=== PATIENT | male | born 1970 | race Caucasian/White ===

== ENCOUNTER 2022-05-01 16:39 | Inpatient (IN) | payer OTHER ==
[~2022-05-01] VITALS: Ht 175.3 cm; Wt 119.0 kg
[2022-05-01 18:54] LABS: BASOPHILS ABSOLUTE AUTO 0.08 K/mm3 (0.00-0.23); BASOPHILS PERCENT AUTO 1 % (0-2); EOSINOPHILS PERCENT AUTO 0 % (0-6); Hematocrit 50.6 % (37.0-53.0); Hemoglobin 17.6 g/dL (13.5-17.5); IMMATURE GRAN ABSOLUTE AUTO 0.11 K/mm3 (0.00-0.10); IMMATURE GRAN PERCENT AUTO 1 % (0-1); LYMPHOCYTES ABSOLUTE AUTO 1.64 K/mm3 (0.84-5.20); LYMPHOCYTES PERCENT AUTO 9 % (21-46); MONOCYTES ABSOLUTE AUTO 2.28 K/mm3 (0.16-1.47); MONOCYTES PERCENT AUTO 13 % (4-13); Mean Corpuscular HGB 31.4 pg (26.0-34.0); Mean Corpuscular HGB Conc 34.8 g/dL (31.5-36.5); Mean Corpuscular Volume 90 fL (80-100); Mean Platelet Volume 9.5 fL (9.1-12.4); NEUTROPHILS ABSOLUTE AUTO 13.31 K/mm3 (1.96-9.15); NEUTROPHILS PERCENT AUTO 76 % (41-73); Platelet Count 225 K/mm3 (150-400); RDW Coefficient Variation 13.6 % (11.7-14.2); RDW Standard Deviation 45.4 fL (35.1-46.3); White Blood Cell Count 17.42 K/mm3 (4.00-11.30)
[2022-05-01 19:13] LABS: Albumin, Blood 3.6 g/dL (3.4-5.0); Albumin/Globulin Ratio 0.8 (0.8-1.8); Bun/Creatinine Ratio 14.2 (12.0-20.0); Creatinine, Blood 0.92 mg/dL (0.60-1.20); Globulin, Blood 4.5 g/dL (2.2-4.0); Potassium, Blood 4.1 mmol/L (3.5-5.5); Total Protein, Blood 8.1 g/dL (6.4-8.2)
[2022-05-01 19:30] LABS: Source, Urine Clean Catch
[2022-05-01 19:34] LABS: Appearance, Urine Clear (Clear); Bilirubin, Urine Neg (Neg); Blood, Urine 3+ (Neg); Color, Urine Yellow (P-Yellow); Glucose Qualitative, Urine Neg (Neg); Ketones, Urine 1+ (Neg); Leukocyte Esterase, Urine 1+ (Neg); Nitrite, Urine Neg (Neg); Protein, Urine 3+ (Neg); Urobilinogen, Urine NORM (Normal)
[2022-05-01 19:42] LABS: Bacteria Few /hpf; Hyaline Casts 0-2 /lpf (0-2); Mucus Light (0-Heavy); Red Blood Cells, Urine 0-2 /hpf (0-2); Squamous Epithelial Cells Rare /hpf (Few); White Blood Cells, Urine 0-2 /hpf (0-5)
--- NOTE | 2022-05-01 22:12 | NUR ---
NEW ADMIT PT ARRIVED T/ROOM AT 2208. PT XFER T/BED INDEPENDENTLY; PT INDEPENDENT IN ROOM. PT ORIENTED TO ROOM/CALL LIGHT. PT A/OX4. ABLE TO MAKE NEEDS KNOWN. CALL LIGHT IN REACH.
--- NOTE | 2022-05-02 05:00 | NUR ---
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 INDEPENDENT IN THE ROOM. PT ADMIT W/DIVERTICULITIS AND POSSIBLE PERFORATION. PT ABDOMEN DISTENDED AND PAINFUL IN LOWER LEFT QUAD. PT STATES HIS PAIN IS MILD AND DENIES NEED FOR MEDS. DR STACK AT BEDSIDE--REG DIET IF TOLERATES; NPO IF NOT. PT HAS REQUESTED WATER ONLY AND TOLERATING WELL. PT PLEASANT AND COOPERATIVE WITH CARE. ORIENTED TO ROOM. CALL LIGHT IN REACH. NS RUNNING AT 75 MLS/HR.
[2022-05-02 05:59] LABS: BASOPHILS ABSOLUTE AUTO 0.08 K/mm3 (0.00-0.23); BASOPHILS PERCENT AUTO 1 % (0-2); EOSINOPHILS ABSOLUTE AUTO 0.02 K/mm3 (0.00-0.68); EOSINOPHILS PERCENT AUTO 0 % (0-6); Hematocrit 47.5 % (37.0-53.0); IMMATURE GRAN ABSOLUTE AUTO 0.06 K/mm3 (0.00-0.10); IMMATURE GRAN PERCENT AUTO 1 % (0-1); LYMPHOCYTES ABSOLUTE AUTO 1.52 K/mm3 (0.84-5.20); LYMPHOCYTES PERCENT AUTO 12 % (21-46); MONOCYTES ABSOLUTE AUTO 1.58 K/mm3 (0.16-1.47); MONOCYTES PERCENT AUTO 13 % (4-13); Mean Corpuscular HGB 31.1 pg (26.0-34.0); Mean Corpuscular HGB Conc 33.7 g/dL (31.5-36.5); Mean Corpuscular Volume 92 fL (80-100); Mean Platelet Volume 9.5 fL (9.1-12.4); NEUTROPHILS ABSOLUTE AUTO 9.42 K/mm3 (1.96-9.15); NEUTROPHILS PERCENT AUTO 74 % (41-73); Platelet Count 199 K/mm3 (150-400); RDW Coefficient Variation 13.8 % (11.7-14.2); RDW Standard Deviation 47.3 fL (35.1-46.3); Red Blood Cell Count 5.15 M/mm3 (4.30-5.90); White Blood Cell Count 12.68 K/mm3 (4.00-11.30)
[2022-05-02 06:41] LABS: Albumin, Blood 3.1 g/dL (3.4-5.0); Albumin/Globulin Ratio 0.8 (0.8-1.8); Bilirubin, Total 1.2 mg/dL (0.1-1.0); Bun/Creatinine Ratio 13.4 (12.0-20.0); Calcium, Blood 8.6 mg/dL (8.5-10.1); Creatinine, Blood 1.19 mg/dL (0.60-1.20); Globulin, Blood 4.1 g/dL (2.2-4.0); Potassium, Blood 4.4 mmol/L (3.5-5.5); Total Protein, Blood 7.2 g/dL (6.4-8.2)
--- NOTE | 2022-05-02 18:12 | NUR ---
SHIFT SUMMARY: NO ACUTE CHANGES THIS SHIFT. PT ALERT AND ORIENTED X4. COMPLAINED OF PAIN ONCE IN HIS LOWER LEFT ABDOMEN. MEDICATED WITH A DOSE OF FENTANYL. NO C/O PAIN SINCE. PT WAS SWITCHED FROM NS TO LR AND IS TOLERATING WELL. PT INDEPENDENT IN HIS ROOM. PT NPO FOR BREAKFAST AND LUNCH. REGULAR DIET FOR DINNER AND IS TOLERATING WELL. COORPERATIVE WITH ALL CARE. CALL LIGHT IN REACH. BED IN LOWEST POSITION. WILL CONTINUE TO MONITOR.
[2022-05-03 05:47] LABS: BASOPHILS ABSOLUTE AUTO 0.07 K/mm3 (0.00-0.23); BASOPHILS PERCENT AUTO 1 % (0-2); EOSINOPHILS ABSOLUTE AUTO 0.07 K/mm3 (0.00-0.68); EOSINOPHILS PERCENT AUTO 1 % (0-6); Hematocrit 44.9 % (37.0-53.0); Hemoglobin 14.9 g/dL (13.5-17.5); IMMATURE GRAN ABSOLUTE AUTO 0.04 K/mm3 (0.00-0.10); IMMATURE GRAN PERCENT AUTO 0 % (0-1); LYMPHOCYTES PERCENT AUTO 21 % (21-46); MONOCYTES ABSOLUTE AUTO 1.63 K/mm3 (0.16-1.47); MONOCYTES PERCENT AUTO 17 % (4-13); Mean Corpuscular HGB Conc 33.2 g/dL (31.5-36.5); Mean Corpuscular Volume 94 fL (80-100); Mean Platelet Volume 9.8 fL (9.1-12.4); NEUTROPHILS ABSOLUTE AUTO 5.83 K/mm3 (1.96-9.15); NEUTROPHILS PERCENT AUTO 61 % (41-73); Platelet Count 180 K/mm3 (150-400); RDW Coefficient Variation 13.9 % (11.7-14.2); RDW Standard Deviation 48.4 fL (35.1-46.3); White Blood Cell Count 9.64 K/mm3 (4.00-11.30)
[2022-05-03 06:07] LABS: Albumin, Blood 2.8 g/dL (3.4-5.0); Albumin/Globulin Ratio 0.7 (0.8-1.8); Bilirubin, Total 0.5 mg/dL (0.1-1.0); C-REACTIVE PROTEIN, EXT RANGE 13.7 mg/dL (0.000-0.300); Globulin, Blood 3.9 g/dL (2.2-4.0); Phosphorus, Blood 2.3 mg/dL (2.5-4.9); Total Protein, Blood 6.7 g/dL (6.4-8.2)
--- NOTE | 2022-05-03 07:33 | NUR ---
NO CHANGES OVERNIGHT. MR HUITRON SLEPT WELL, HOWEVER WAS A VERY LIGHT SLEEPER. ONLY MILD ABD PAIN WHICH THE PATIENT DENIED THE NEED FOR PAIN RELIEF. WE DISCUSSED NOT WAITING UNTIL HIS PAIN WAS BEGINNING TO PEAK, IT IS DIFFICULT TO CONTROL. PATIENT TOLERATING UNASYN WITHOUT DIFFICULTY
--- NOTE | 2022-05-03 18:47 | NUR ---
SHIFT SUMMARY PT AWAKE DURING SHIFT REPORT. PLEASANT AND CO-OP WITH CARE. INDEPENDENT IN RM AND TO BTHRM. NO C/O PAIN. TOLERATING REG DIET WELL. PER PT, DR REICH IN TO SEE PT; NO NEW ORDERS. DR FOWLER ALSO IN TO SEE PT AND DISCUSS PLAN OF CARE. VISITORS HERE A COUPLE OF TIMES THRU OUT THE DAY. DENIED FURTHER NEEDS. CALL LT IN REACH.
--- NOTE | 2022-05-04 03:41 | NUR ---
PT ASSESSMENT MISTAKENLY CHARTED UNDER 05/03/22 0000. SEE THIS TIME FOR ASSESSMENT FOR START OF SHIFT 05/03/22 NOC.
--- NOTE | 2022-05-04 07:40 | NUR ---
SHIFT SUMMARY NO ACUTE CHANGES T/O SHIFT, PT INDEPENDENT IN ROOM. EAGER TO DC TODAY.
[2022-05-04] MEDS ORDERED: AMOCLA875 PO (11:11)
[2022-05-04] MEDS ORDERED: VISBIOME 112.51 EACH PO (11:11)
[2022-05-04] MEDS ORDERED: ACET325 PO (11:13)
--- NOTE | 2022-05-04 13:10 | NUR ---
PT AWAKE WATCHING TV AT START OF SHIFT. UP INDEPENDENTLY IN RM AND TO BTHRM. NO C/O. DENIED PAIN. TOLERATING REGULAR DIET. DR FOWLER IN TO SEE PT AND DISCUSS PLAN OF CARE. DR REICH CONSULTED FOR D/C TO HOME. AUGMENTIN RECOMMENDED. D/C ORDERS PLACED. D/C INSTRUCTIONS WITH F/U'S AND DIET REVIEWED WITH PT. VERBALIZED UNDERSTANDING. PT ASSISTED OUT TO FAMILY'S CAR VIA W/C WHEN READY.
== END 2022-05-04 12:07 | disposition home or self-care (01) | DRG 872 ==
LOC: ER 16:39 → MEDS 21:03
PROVIDERS: Hospitalist; Physician Assistant; ADMIT Internal Medicine
DX: A41.9 Sepsis, unspecified organism (principal); K57.20 Diverticulitis of large intestine with perforation and abscess without bleeding; E86.0 Dehydration; E88.09 Other disorders of plasma-protein metabolism, not elsewhere classified; K46.9 Unspecified abdominal hernia without obstruction or gangrene; Z23 Encounter for immunization; Z88.5 Allergy status to narcotic agent
CPT/HCPCS: 36415; 74176; 80053; 81001; 83605; 83690; 83735; 84100; 84484; 85025; 86140; 87040; 87086; 90686; 93005; 93010; 96361; 96374; 96375; 99285-25; J0295; J0692; J1650; J1885; J2405; J3010; J7030; J7050; J7120

== ENCOUNTER 2022-08-03 11:56 | Emergency (ER) | payer OTHER ==
[~2022-08-03] VITALS: Ht 175.3 cm; Wt 122.5 kg
[~2022-08-03 11:56] MED LIST: ACET325 PO; AMOCLA875 PO; VISBIOME 112.51 EACH PO
[2022-08-03 12:26] LABS: BASOPHILS ABSOLUTE AUTO 0.07 K/mm3 (0.00-0.23); BASOPHILS PERCENT AUTO 1 % (0-2); EOSINOPHILS ABSOLUTE AUTO 0.07 K/mm3 (0.00-0.68); EOSINOPHILS PERCENT AUTO 1 % (0-6); Hematocrit 47.1 % (37.0-53.0); Hemoglobin 16.1 g/dL (13.5-17.5); IMMATURE GRAN ABSOLUTE AUTO 0.04 K/mm3 (0.00-0.10); IMMATURE GRAN PERCENT AUTO 0 % (0-1); LYMPHOCYTES ABSOLUTE AUTO 2.22 K/mm3 (0.84-5.20); LYMPHOCYTES PERCENT AUTO 21 % (21-46); MONOCYTES PERCENT AUTO 14 % (4-13); Mean Corpuscular HGB 31.1 pg (26.0-34.0); Mean Corpuscular HGB Conc 34.2 g/dL (31.5-36.5); Mean Corpuscular Volume 91 fL (80-100); Mean Platelet Volume 9.4 fL (9.1-12.4); NEUTROPHILS ABSOLUTE AUTO 6.85 K/mm3 (1.96-9.15); NEUTROPHILS PERCENT AUTO 64 % (41-73); Platelet Count 216 K/mm3 (150-400); RDW Coefficient Variation 13.4 % (11.7-14.2); RDW Standard Deviation 45.1 fL (35.1-46.3); Red Blood Cell Count 5.17 M/mm3 (4.30-5.90); White Blood Cell Count 10.75 K/mm3 (4.00-11.30)
[2022-08-03 12:51] LABS: Albumin, Blood 3.5 g/dL (3.4-5.0); Albumin/Globulin Ratio 0.8 (0.8-1.8); Bilirubin, Total 0.6 mg/dL (0.1-1.0); Bun/Creatinine Ratio 21.4 (12.0-20.0); Calcium, Blood 8.8 mg/dL (8.5-10.1); Creatinine, Blood 0.79 mg/dL (0.60-1.20); Globulin, Blood 4.2 g/dL (2.2-4.0); Potassium, Blood 4.1 mmol/L (3.5-5.5); Total Protein, Blood 7.7 g/dL (6.4-8.2)
[2022-08-03 13:18] LABS: Source, Urine Voided
[2022-08-03 13:24] LABS: Appearance, Urine Clear (Clear); Bilirubin, Urine Neg (Neg); Blood, Urine 1+ (Neg); Color, Urine Yellow (P-Yellow); Glucose Qualitative, Urine Neg (Neg); Ketones, Urine Neg (Neg); Leukocyte Esterase, Urine Neg (Neg); Nitrite, Urine Neg (Neg); Protein, Urine Neg (Neg); Urobilinogen, Urine NORM (Normal)
[2022-08-03 14:02] LABS: Bacteria Few /hpf; Red Blood Cells, Urine 0-2 /hpf (0-2); Squamous Epithelial Cells Rare /hpf (Few); White Blood Cells, Urine 0-2 /hpf (0-5)
[2022-08-03] MEDS ORDERED: ONDA4ODT SL (18:28)
[2022-08-03] MEDS ORDERED: AMOCLA875 PO (18:28)
== END 2022-08-03 19:01 | disposition home or self-care (01) ==
LOC: ER 11:56
PROVIDERS: Emergency Medicine
DX: R10.32 Left lower quadrant pain (principal); Z88.5 Allergy status to narcotic agent
CPT/HCPCS: 36415; 74177; 80053; 81001; 83690; 85025; 96374-59; 96375; 99284-25; A9270; J1170; J2405; Q9967

== ENCOUNTER → 2022-08-07 | Outpatient (CLI) | payer OTHER ==
[~2022-08-07] MED LIST changes: +ONDA4ODT SL
== END | disposition home or self-care (01) ==
LOC: LAB 10:30 → LAB SHORT 10:30
DX: K57.80 Diverticulitis of intestine, part unspecified, with perforation and abscess without bleeding (principal); Z83.79 Family history of other diseases of the digestive system
CPT/HCPCS: 83993

== ENCOUNTER 2022-12-08 14:28 | Inpatient (IN) | payer OTHER ==
[~2022-12-08] VITALS: Ht 175.3 cm; Wt 125.6 kg
[2022-12-08 15:19] LABS: BASOPHILS ABSOLUTE AUTO 0.07 K/mm3 (0.00-0.23); BASOPHILS PERCENT AUTO 0 % (0-2); EOSINOPHILS PERCENT AUTO 0 % (0-6); Hematocrit 49.4 % (37.0-53.0); Hemoglobin 16.5 g/dL (13.5-17.5); IMMATURE GRAN ABSOLUTE AUTO 0.11 K/mm3 (0.00-0.10); IMMATURE GRAN PERCENT AUTO 1 % (0-1); LYMPHOCYTES PERCENT AUTO 9 % (21-46); MONOCYTES PERCENT AUTO 6 % (4-13); Mean Corpuscular HGB 30.5 pg (26.0-34.0); Mean Corpuscular HGB Conc 33.4 g/dL (31.5-36.5); Mean Corpuscular Volume 91 fL (80-100); Mean Platelet Volume 9.4 fL (9.1-12.4); NEUTROPHILS ABSOLUTE AUTO 16.65 K/mm3 (1.96-9.15); NEUTROPHILS PERCENT AUTO 84 % (41-73); Platelet Count 223 K/mm3 (150-400); RDW Standard Deviation 47.3 fL (35.1-46.3); Red Blood Cell Count 5.41 M/mm3 (4.30-5.90); White Blood Cell Count 19.73 K/mm3 (4.00-11.30)
[2022-12-08 15:20] LABS: Albumin, Blood 3.6 g/dL (3.4-5.0); Albumin/Globulin Ratio 0.8 (0.8-1.8); Bilirubin, Total 1.1 mg/dL (0.1-1.0); Calcium, Blood 9.2 mg/dL (8.5-10.1); Creatinine, Blood 0.93 mg/dL (0.60-1.20); Globulin, Blood 4.5 g/dL (2.2-4.0); Potassium, Blood 4.1 mmol/L (3.5-5.5); Total Protein, Blood 8.1 g/dL (6.4-8.2)
[2022-12-08] MEDS ORDERED: METO25ER PO (18:37)
[2022-12-08] MEDS ORDERED: SERT50 PO (18:37)
[2022-12-08 19:45] VITALS: BP 149/90
--- NOTE | 2022-12-09 04:32 | NUR ---
SHIFT SUMMARY. SHIFT HAS BEEN UNREMARKABLE. PT ARRIVED ON UNIT EARLY IN SHIFT. AOX4, PLEASANT, COOPERATIVE WITH CARE. ADMITTED FOR DIVERTICULITIS. SURGEON CONSULT CALLED IN ED. PT IS NPO, AWAITING CONSULT AND POSSIBLE PROCEDURE WITH DR. REICH IN THE MORNING. PT CALLS APPROPRIATELY. INDEPENDENT WITHIN ROOM. PAIN WELL MANAGED ON CURRENT MEDICATION REGIMEN. LR RUNNING THROUGHOUT SHIFT WITH EXCEPTION OF BREAK TO ADMINISTER SCHEDULED ZOSYN. BED LOCKED IN LOWEST POSITION. CALL LIGHT LEFT WITHIN REACH.
[2022-12-09 05:42] LABS: BASOPHILS ABSOLUTE AUTO 0.06 K/mm3 (0.00-0.23); BASOPHILS PERCENT AUTO 0 % (0-2); EOSINOPHILS ABSOLUTE AUTO 0.01 K/mm3 (0.00-0.68); EOSINOPHILS PERCENT AUTO 0 % (0-6); Hemoglobin 15.3 g/dL (13.5-17.5); IMMATURE GRAN ABSOLUTE AUTO 0.09 K/mm3 (0.00-0.10); IMMATURE GRAN PERCENT AUTO 1 % (0-1); LYMPHOCYTES ABSOLUTE AUTO 1.64 K/mm3 (0.84-5.20); LYMPHOCYTES PERCENT AUTO 10 % (21-46); MONOCYTES ABSOLUTE AUTO 1.21 K/mm3 (0.16-1.47); MONOCYTES PERCENT AUTO 7 % (4-13); Mean Corpuscular Volume 91 fL (80-100); Mean Platelet Volume 9.4 fL (9.1-12.4); NEUTROPHILS ABSOLUTE AUTO 13.26 K/mm3 (1.96-9.15); NEUTROPHILS PERCENT AUTO 81 % (41-73); Platelet Count 190 K/mm3 (150-400); RDW Coefficient Variation 14.5 % (11.7-14.2); RDW Standard Deviation 48.8 fL (35.1-46.3); Red Blood Cell Count 4.94 M/mm3 (4.30-5.90); White Blood Cell Count 16.27 K/mm3 (4.00-11.30)
[2022-12-09 06:19] LABS: Albumin, Blood 3.1 g/dL (3.4-5.0); Albumin/Globulin Ratio 0.7 (0.8-1.8); Bilirubin, Total 1.3 mg/dL (0.1-1.0); Bun/Creatinine Ratio 13.9 (12.0-20.0); Calcium, Blood 8.8 mg/dL (8.5-10.1); Creatinine, Blood 1.01 mg/dL (0.60-1.20); Globulin, Blood 4.4 g/dL (2.2-4.0); Potassium, Blood 3.9 mmol/L (3.5-5.5); Total Protein, Blood 7.5 g/dL (6.4-8.2)
[2022-12-09 06:39] VITALS: BP 127/87
[2022-12-09 07:17] VITALS: BP 129/86
[2022-12-09 15:26] VITALS: BP 135/89
--- NOTE | 2022-12-09 17:48 | NUR ---
PATIENT A/OX4, UP INDEPENDENTLY IN ROOM. DENIES ANY NAUSEA THIS SHIFT, BUT CONTINUES TO HAVE 6/10 ABDOMINAL PAIN THAT IS WORSE WITH ACTIVITY. FENTANYL GIVEN X2 TO TREAT WITH STATED RELIEF. DR REICH AT BEDSIDE FOR SURGICAL CONSULT AND PLACED PATIENT ON A CLEAR DIET. LR INFUSING AT 125ML/HR. PLEASANT AND COOPERATIVE WITH CARE. PATIENT NOT CURRENLTY ON O2, BUT WAS EDUCATED ABOUT IGNITION SOURCES AND RISK OF INJURY WHILE O2 IS IN USE. PATIENT DENIES SMOKING AND VERBALIZES UNDERSTANDING.
[2022-12-09 19:34] VITALS: BP 129/85
[2022-12-10 03:53] VITALS: BP 133/85
[2022-12-10 06:53] LABS: BASOPHILS ABSOLUTE AUTO 0.05 K/mm3 (0.00-0.23); BASOPHILS PERCENT AUTO 0 % (0-2); EOSINOPHILS ABSOLUTE AUTO 0.02 K/mm3 (0.00-0.68); EOSINOPHILS PERCENT AUTO 0 % (0-6); Hematocrit 44.3 % (37.0-53.0); IMMATURE GRAN ABSOLUTE AUTO 0.06 K/mm3 (0.00-0.10); IMMATURE GRAN PERCENT AUTO 1 % (0-1); LYMPHOCYTES PERCENT AUTO 10 % (21-46); MONOCYTES ABSOLUTE AUTO 1.03 K/mm3 (0.16-1.47); MONOCYTES PERCENT AUTO 9 % (4-13); Mean Corpuscular HGB 30.7 pg (26.0-34.0); Mean Corpuscular HGB Conc 33.9 g/dL (31.5-36.5); Mean Corpuscular Volume 91 fL (80-100); Mean Platelet Volume 9.5 fL (9.1-12.4); NEUTROPHILS ABSOLUTE AUTO 9.82 K/mm3 (1.96-9.15); NEUTROPHILS PERCENT AUTO 81 % (41-73); Platelet Count 184 K/mm3 (150-400); RDW Coefficient Variation 14.6 % (11.7-14.2); RDW Standard Deviation 48.8 fL (35.1-46.3); Red Blood Cell Count 4.88 M/mm3 (4.30-5.90); White Blood Cell Count 12.18 K/mm3 (4.00-11.30)
[2022-12-10 07:12] LABS: Albumin/Globulin Ratio 0.6 (0.8-1.8); Bilirubin, Total 0.7 mg/dL (0.1-1.0); Bun/Creatinine Ratio 17.6 (12.0-20.0); Calcium, Blood 8.5 mg/dL (8.5-10.1); Creatinine, Blood 0.97 mg/dL (0.60-1.20); Globulin, Blood 4.7 g/dL (2.2-4.0); Potassium, Blood 3.8 mmol/L (3.5-5.5); Total Protein, Blood 7.7 g/dL (6.4-8.2)
[2022-12-10 07:28] VITALS: BP 122/80
[2022-12-10 15:44] VITALS: BP 133/88
--- NOTE | 2022-12-10 18:35 | NUR ---
PATIENT A/OX4, UP INDEPENDENTLY IN ROOM. VSS, ON RA. CONTINUES TO HAVE FREQUENT LOOSE STOOLS. PAIN HASN'T IMPROVED AND IS REQUIRING FENTANYL TO TREAT. LR INFUSING AT 125ML/HR. CONTINUES ON ANTIBIOTICS. TOLERATING CLEAR DIET. PLEASANT AND COOPERATIVE WITH CARE AND CALLS APPROPRIATELY FOR ASSISTANCE.
[2022-12-10 19:30] VITALS: BP 131/84
[2022-12-11 04:20] VITALS: BP 129/84
[2022-12-11 05:00] LABS: BASOPHILS ABSOLUTE AUTO 0.06 K/mm3 (0.00-0.23); BASOPHILS PERCENT AUTO 1 % (0-2); EOSINOPHILS ABSOLUTE AUTO 0.09 K/mm3 (0.00-0.68); EOSINOPHILS PERCENT AUTO 1 % (0-6); Hematocrit 42.1 % (37.0-53.0); Hemoglobin 13.9 g/dL (13.5-17.5); IMMATURE GRAN ABSOLUTE AUTO 0.05 K/mm3 (0.00-0.10); IMMATURE GRAN PERCENT AUTO 1 % (0-1); LYMPHOCYTES ABSOLUTE AUTO 1.57 K/mm3 (0.84-5.20); LYMPHOCYTES PERCENT AUTO 16 % (21-46); MONOCYTES ABSOLUTE AUTO 1.12 K/mm3 (0.16-1.47); MONOCYTES PERCENT AUTO 12 % (4-13); Mean Corpuscular HGB 30.6 pg (26.0-34.0); Mean Corpuscular Volume 93 fL (80-100); Mean Platelet Volume 9.7 fL (9.1-12.4); NEUTROPHILS ABSOLUTE AUTO 6.86 K/mm3 (1.96-9.15); NEUTROPHILS PERCENT AUTO 70 % (41-73); Platelet Count 205 K/mm3 (150-400); RDW Coefficient Variation 14.6 % (11.7-14.2); RDW Standard Deviation 49.7 fL (35.1-46.3); Red Blood Cell Count 4.54 M/mm3 (4.30-5.90); White Blood Cell Count 9.75 K/mm3 (4.00-11.30)
--- NOTE | 2022-12-11 05:10 | NUR ---
SHIFT SUMMARY NOC PT A/O X 4. PLEASANT AND COOPERATIVE WITH CARE. NO ACUTE CHANGES TO REPORT. C DIFF SAMPLE SENT OFF FOR TESTING. PT PAIN MANAGED X 2 DURING SHIFT. PT IS REPORT MORE CONSISTENCY IN BOWEL MOVEMENT TEXTURE. 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 PT IS CURRENTLY RESTING WITH BED IN LOWEST POSITION, AND CALL LIGHT WITHIN REACH.
--- NOTE | 2022-12-11 05:23 | NUR ---
PT EDUCATED ON [facility] IGNITION/EXPLOSIVES NON SMOKING SAFETY POLICY AND UNDERSTANDS.
[2022-12-11 05:49] LABS: Albumin, Blood 2.9 g/dL (3.4-5.0); Albumin/Globulin Ratio 0.6 (0.8-1.8); Bilirubin, Total 0.6 mg/dL (0.1-1.0); Bun/Creatinine Ratio 15.7 (12.0-20.0); Calcium, Blood 8.1 mg/dL (8.5-10.1); Creatinine, Blood 0.96 mg/dL (0.60-1.20); Globulin, Blood 4.5 g/dL (2.2-4.0); Potassium, Blood 3.5 mmol/L (3.5-5.5); Total Protein, Blood 7.4 g/dL (6.4-8.2)
[2022-12-11 08:11] VITALS: BP 126/89
[2022-12-11 08:52] LABS: C DIFFICILE DNA POSITIVE (Negative)
[2022-12-11] MEDS ORDERED: Percocet 5-3251 EACH PO (16:22)
[2022-12-11] MEDS ORDERED: AMOCLA875 PO (16:22)
[2022-12-11] MEDS ORDERED: VANCOCIN HCL125 MG PO (16:23)
--- NOTE | 2022-12-11 17:15 | NUR ---
PATIENT D/C'D TO HOME AND FAMILY. D/C INSTUCTIONS AND EDUCATION DISCUSSED WITH PATIENT AND COPY PROVIDED. RX MEDICATIONS FAXED TO [facility] ON [address] DR. ARAYA SENT E SCRIPT FOR PERCOCET TO [facility]. PATIENT DENIES ANY FURTHER QUESTIONS OR CONCERNS.
== END 2022-12-11 17:19 | disposition home or self-care (01) | DRG 872 ==
LOC: ER 14:28 → MEDS 17:38 → ENPENDDIS 12-11 15:22 → MEDS 12-11 17:19
PROVIDERS: Family Medicine; Physician Assistant; ADMIT Student in an Organized Health Care Education/Training Program
DX: A41.9 Sepsis, unspecified organism (principal); K57.20 Diverticulitis of large intestine with perforation and abscess without bleeding; A04.72 Enterocolitis due to Clostridium difficile, not specified as recurrent; K46.9 Unspecified abdominal hernia without obstruction or gangrene; E66.9 Obesity, unspecified; K76.0 Fatty (change of) liver, not elsewhere classified; K66.8 Other specified disorders of peritoneum; Z88.5 Allergy status to narcotic agent; Z79.2 Long term (current) use of antibiotics; Z79.899 Other long term (current) drug therapy; Z68.39 Body mass index [BMI] 39.0-39.9, adult; Z98.890 Other specified postprocedural states
CPT/HCPCS: 36415; 74177; 80053; 83605; 83690; 83735; 85025; 87040; 87324; 87493; 96361; 96365-59; 96375; 99285-25; A9270; J1170; J1650; J2405; J2543; J3010; J7030; J7050; J7120; Q9967